=== PATIENT | female | born 1990 | race Two or more races ===

== ENCOUNTER 2018-10-25 09:00 | Inpatient (IN) | payer OTHER ==
[~2018-10-25] VITALS: Ht 160 cm; Wt 61.2 kg
== END 2018-11-11 14:41 | disposition home or self-care (01) | DRG 768 ==
LOC: EDSEX 09:00 → LDR 11-08 19:29 → OB/GYN 11-09 12:57 → EDBD 11-11 09:00 → OB/GYN 11-11 14:41
PROVIDERS: ADMIT Obstetrics & Gynecology Maternal & Fetal Medicine
PROC: 3E033VJ Introduction of Other Hormone into Peripheral Vein, Percutaneous Approach (ICD-10-PCS; 2018-11-08)
PROC: 4A1HXCZ Monitoring of Products of Conception, Cardiac Rate, External Approach (ICD-10-PCS; 2018-11-08)
PROC: 10E0XZZ Delivery of Products of Conception, External Approach (ICD-10-PCS; principal; 2018-11-09)
PROC: 0DQR0ZZ Repair Anal Sphincter, Open Approach (ICD-10-PCS; 2018-11-09)
PROC: 0W8NXZZ Division of Female Perineum, External Approach (ICD-10-PCS; 2018-11-09)
DX: O70.21 Third degree perineal laceration during delivery, IIIa (principal); Z37.0 Single live birth; Z3A.39 39 weeks gestation of pregnancy; Z22.330 Carrier of Group B streptococcus

== ENCOUNTER 2018-10-25 14:25 | Outpatient (CLI) | payer OTHER | END 2018-10-25 21:03 | disposition home or self-care (01) | LOC: NST 14:25 | DX: Z34.83 Encounter for supervision of other normal pregnancy, third trimester (principal) ==

== ENCOUNTER 2018-11-08 10:50 | Outpatient (CLI) | payer OTHER | END 2018-11-08 11:41 | disposition home or self-care (01) | LOC: NST 10:50 | DX: Z34.83 Encounter for supervision of other normal pregnancy, third trimester (principal) ==

== ENCOUNTER 2020-02-18 06:30 | Day surgery (SDC) | payer OTHER | END 2020-02-18 14:00 | disposition home or self-care (01) | LOC: CIR.AMB 06:30 | DX: O02.1 Missed abortion (principal) ==

== ENCOUNTER 2022-08-24 12:18 | Inpatient (IN) | payer OTHER ==
[~2022-08-24] VITALS: Ht 160 cm; Wt 60.3 kg
[2022-08-24] MEDS ORDERED: PRENATAL TABLE1 EAC3 PO (12:33)
== END 2022-08-26 14:34 | disposition home or self-care (01) | DRG 807 ==
LOC: LDR 12:18 → OB/GYN 12:22 → LDR 12:22 → EDSTATUS 13:45 → OB/GYN 17:02
PROVIDERS: ADMIT Obstetrics & Gynecology Maternal & Fetal Medicine; ATTEND Obstetrics & Gynecology Maternal & Fetal Medicine
PROC: 10E0XZZ Delivery of Products of Conception, External Approach (ICD-10-PCS; principal; 2022-08-24)
PROC: 4A1HXCZ Monitoring of Products of Conception, Cardiac Rate, External Approach (ICD-10-PCS; 2022-08-24)
DX: O80 Encounter for full-term uncomplicated delivery (principal); Z37.0 Single live birth; Z3A.38 38 weeks gestation of pregnancy; Z20.822 Contact with and (suspected) exposure to COVID-19

== ENCOUNTER 2024-01-10 12:37 | Inpatient (IN) | payer OTHER ==
[~2024-01-10] VITALS: Ht 152.4 cm; Wt 60.8 kg
[~2024-01-10 12:37] MED LIST: PRENATAL TABLE1 EAC3 PO
[2024-01-23] MEDS ORDERED: RINGERS SOLUTION,LACTATED 1,000 ML IV SCH (06:00)
[2024-01-23] MEDS ORDERED: OXYTOCIN 500 ML IV SCH (07:00)
[2024-01-23 07:17] LABS: HEMATOCRIT 32.2 % (36.0-45.00); HEMOGLOBIN 10.7 g/dL (12.0-15.00); MEAN CELL VOLUME 82.5 fL (80.00-100.00); MEAN CORPUSCULAR HEMOGLOBIN 27.3 pg (27.00-32.0); MEAN CORPUSCULAR HGB CONC 33.1 g/dl (32.0-36.0); PLATELET COUNT 237 K/uL (150-450); RED CELL DISTRIBUTION WIDTH 14.6 % (11.5-14.5)
[2024-01-23 07:40] LABS: INR < 0.93; PROTHROMBIN TIME 9.6 SECONDS (9.0-11.5)
[2024-01-23 07:44] LABS: ALBUMIN 2.6 gm/dL (3.4-5.0); BILIRUBIN TOTAL 0.36 mg/dL (0.3-1.2); CALCIUM 7.9 mg/dL (8.5-10.1); CREATININE SERUM 0.57 mg/dL (0.55-1.02); GFR 123.71; GLOBULINA 3.4 G/DL (2.4-3.5); POTASSIUM 3.33 mEq/L (3.5-5.1)
[2024-01-23] MEDS ORDERED: CHLORHEXIDINE GLUCONATE 120 ML BOTTLE TOP ONE (08:39)
[2024-01-23] MEDS ORDERED: OXYTOCIN 20 UNITS/1000ML RL PIGGYBAG IV ONE (08:39)
[2024-01-23] MEDS ORDERED: ERYTHROMYCIN BASE 1 GM TUBE OP ONE (08:39)
[2024-01-23] MEDS ORDERED: OXYTOCIN 1,000 ML IV SCH (09:30)
[2024-01-23] MEDS ORDERED: MEPERIDINE HCL/PF 50 MG/ML VIAL IM PRN (09:30)
[2024-01-23] MEDS ORDERED: IBUprofen 400 MG TABLET PO PRN ×2 (09:30→12:00)
[2024-01-23] MEDS ORDERED: MORPHINE SULFATE 4 MG/ML VIAL IV ONE (10:45)
[2024-01-23] MEDS ORDERED: DOCUSATE SODIUM 100MG CAP PO SCH (11:48)
[2024-01-23] MEDS ORDERED: OXYTOCIN 1,000 ML IV ONE (12:00)
[2024-01-23] MEDS ORDERED: CHLORHEXIDINE GLUCONATE 120 ML BOTTLE TOP SCH (12:00)
[2024-01-23] MEDS ORDERED: LIDOCAINE HCL 1% 200MG/20ML VIAL IJ SCH (12:00)
[2024-01-23] MEDS ORDERED: ERYTHROMYCIN BASE 1 GM TUBE OP SCH (12:00)
[2024-01-24 07:04] LABS: HEMATOCRIT 35.5 % (36.0-45.00); HEMOGLOBIN 11.9 g/dL (12.0-15.00); MEAN CELL VOLUME 81.9 fL (80.00-100.00); MEAN CORPUSCULAR HEMOGLOBIN 27.4 pg (27.00-32.0); MEAN CORPUSCULAR HGB CONC 33.4 g/dl (32.0-36.0); PLATELET COUNT 224 K/uL (150-450); RED BLOOD COUNT 4.34 M/uL (4.00-6.00); RED CELL DISTRIBUTION WIDTH 14.5 % (11.5-14.5)
[2024-01-24] MEDS ORDERED: PNV,CALCIUM 72/IRON/FOLIC ACID 1 TAB TABLET PO SCH (09:00)
== END 2024-01-25 14:23 | disposition home or self-care (01) | DRG 807 ==
LOC: LDR 01-23 05:36 → OB/GYN 01-23 05:36 → LDR 01-25 13:45 → OB/GYN 01-25 14:23
PROVIDERS: Obstetrics & Gynecology Gynecology; ADMIT Obstetrics & Gynecology; ATTEND Obstetrics & Gynecology
PROC: 10E0XZZ Delivery of Products of Conception, External Approach (ICD-10-PCS; principal; 2024-01-23)
PROC: 4A1HXCZ Monitoring of Products of Conception, Cardiac Rate, External Approach (ICD-10-PCS; 2024-01-23)
DX: O80 Encounter for full-term uncomplicated delivery (principal); Z37.0 Single live birth; Z3A.39 39 weeks gestation of pregnancy; Z20.822 Contact with and (suspected) exposure to COVID-19

== ENCOUNTER 2024-01-17 09:53 | Outpatient (CLI) | payer OTHER | END 2024-01-17 11:13 | disposition home or self-care (01) | LOC: NST 09:53 | PROVIDERS: ATTEND Obstetrics & Gynecology | DX: Z34.83 Encounter for supervision of other normal pregnancy, third trimester (principal) ==